=== PATIENT | female | born 1970 | race Caucasian/White ===

== ENCOUNTER → 2018-01-05 | Outpatient (CLI) | payer OTHER ==
--- NOTE | 2018-01-05 09:03 | CT ---
EXAMINATION TYPE: CT iac w con DATE OF EXAM: 01/05/2018 COMPARISON: None HISTORY: Rt Otalgia CT DLP: 309 mGycm Automated exposure control for dose reduction was used. CONTRAST: CT scan of the IACs is performed with IV Contrast, patient injected with 100 mL of Isovue 300. FINDINGS: The external auditory canals are patent bilaterally. Mastoid air cells show no evidence of abnormal opacification bilaterally. The middle ear ossicles are symmetric and unremarkable. There is no evidence of suspicious surrounding soft tissue density to suggest cholesteatoma. The scutum is preserved bilaterally. The cochlea and the semicircular canals are symmetric and unremarkable. Ves tibular aqueduct and internal carotid canal appear unremarkable. Temporomandibular joints are mainta ined bilaterally. Near Complete opacification left maxillary sinus. IMPRESSION: No significant abnormality seen to account for patient's symptoms.
== END | disposition home or self-care (01) ==
LOC: RADCTMAIN 07:57
PROVIDERS: ATTEND Otolaryngology
DX: H92.01 Otalgia, right ear (principal)
CPT/HCPCS: 70481; Q9967

== ENCOUNTER → 2018-03-15 | Outpatient (CLI) | payer OTHER ==
--- NOTE | 2018-03-17 18:47 | ECHOF ---
Referral Reason:R55 Syncope, R00.1 Bradycardia MEASUREMENTS -------- HEIGHT: 172.7 cm WEIGHT: 102.1 kg BP: RVIDd: 2.5 cm (< 3.3) IVSd: 0.8 cm (0.6 - 1.1) LVIDd: 4.7 cm (3.9 - 5.3) LVPWd: 0.8 cm (0.6 - 1.1) IVSs: 1.3 cm LVIDs: 2.6 cm LVPWs: 1.3 cm LAESV Index (A-L): 17.63 ml/m Ao Diam: 3.4 cm (2.0 - 3.7) AV Cusp: 1.9 cm (1.5 - 2.6) LA Diam: 2.9 cm (2.7 - 3.8) EPSS: 0.3 cm MV E Aamir: 1.08 m/s MV DecT: 212 ms MV A Aamir: 0.84 m/s MV E/A Ratio: 1.29 RAP: 5.00 mmHg RVSP: 16.95 mmHg MV EF SLOPE: 122.97 mm/s (70 - 150) MV EXCURSION: 1.68 cm (> 18.000) FINDINGS -------- Sinus rhythm. This was a technically good study. The left ventricular size is normal. Left ventricular wall thickness is normal. Overall left vent ricular systolic function is normal with, an EF between 55 - 60 %. The right ventricle is normal in size and function. Normal LA size by volume 22+/-6 ml/m2. The right atrium is normal in size. The aortic valve is trileaflet, and appears structurally normal. No aortic stenosis or regurgitation. The mitral valve leaflets are mildly thickened. There is trace mitral regurgitation. Trace tricuspid regurgitation present. Right ventricular systolic pressure is normal at < 35 mmHg. There is no evidence of pulmonary hypertension. Trace/mild (physiologic) pulmonic regurgitation. The aortic root size is normal. Normal inferior vena cava with normal inspiratory collapse consistent with estimated right atrial pre ssure of 5 mmHg. There is no pericardial effusion. CONCLUSIONS -------- 1. Sinus rhythm. 2. This was a technically good study. 3. The left ventricular size is normal. 4. Left ventricular wall thickness is normal. 5. Overall left ventricular systolic function is normal with, an EF between 55 - 60 %. 6. Normal LA size by volume 22+/-6 ml/m2. 7. The aortic valve is trileaflet, and appears structurally normal. No aortic stenosis or regurgitati on. 8. The mitral valve leaflets are mildly thickened. 9. There is trace mitral regurgitation. 10. Trace tricuspid regurgitation present. 11. Right ventricular systolic pressure is normal at < 35 mmHg. 12. There is no evidence of pulmonary hypertension. 13. Trace/mild (physiologic) pulmonic regurgitation. 14. The aortic root size is normal. 15. There is no pericardial effusion. LEARNING AND DEVELOPMENT CONSULTANT: Pavan Jacobo RDCS
--- NOTE | 2018-03-21 06:54 | HM ---
HOLTER MONITOR REPORT A 24-hour DCG report There was no diary provided. Predominant rhythm appears to be sinus with a heart rate ranging from 43 to 135 beats per minute with average heart rate of 63 beats per minute. There was no diary provided and therefore I am not aware of any symptoms. There were rare isolated ventricular and supraventricular ectopic beats without any sustained runs of SVT, VT or bradyarrhythmia. There was also some artifact noted. Heart rate of 130 beats per minute was noted at about 3:23 p.m. no activity at that time was available since there was no diary. FINAL IMPRESSION: Predominant rhythm is sinus with average heart rate of 64 beats per minute. There were rare isolated PACs and PVCs without any sustained tachy or bradyarrhythmias. No diary was provided. MMODL / IJN: [id number] /
== END ==
LOC: RADECHMAIN 12:07
PROVIDERS: ATTEND Family Medicine
DX: R00.1 Bradycardia, unspecified (principal); I05.9 Rheumatic mitral valve disease, unspecified; I37.1 Nonrheumatic pulmonary valve insufficiency
CPT/HCPCS: 93225; 93226; 93306

== ENCOUNTER → 2020-08-25 | Outpatient (CLI) | payer OTHER ==
--- NOTE | 2020-08-27 13:49 | MM ---
Reason for exam: screening (asymptomatic). Last mammogram was performed 9 years and 1 month ago. History: Taking hormonal contraceptives for 2 years. Physical Findings: A clinical breast exam by your physician is recommended on an annual basis and results should be correlated with mammographic findings. MG Screening Mammo w CAD Bilateral CC and MLO view(s) were taken. No prior studies available for comparison. There are scattered fibroglandular densities. ASSESSMENT: Negative, BI-RAD 1 RECOMMENDATION: Routine screening mammogram of both breasts in 1 year.
== END | disposition home or self-care (01) ==
LOC: RADMAMWWP 10:08
PROVIDERS: ATTEND Family Medicine
DX: Z12.31 Encounter for screening mammogram for malignant neoplasm of breast (principal)
CPT/HCPCS: 77067